=== PATIENT | female | born 1985 | race Asian ===

== ENCOUNTER 2017-07-03 08:18 | Day surgery (SDC) | payer OTHER ==
[2017-07-03] VITALS (14 sets, daily range): BP systolic 100–112; BP diastolic 50–66; PULSE 76–88; RESP 12–18; Ht 165.1 cm; Wt 54.0 kg
[~2017-07-03] VITALS: Ht 165.1 cm; Wt 54.0 kg
[~2017-07-03 08:18] MED LIST: CEFAZOLIN 1 GM INJ ONE
[2017-07-03] MEDS ORDERED: BUPIVACAINE 0.25% (MPF) 30 ML INJ ONE (09:16)
[2017-07-03] MEDS ORDERED: SOD CHLORIDE 0.9% 1,000 ML IV SCH (09:30)
[2017-07-03] MEDS ORDERED: CEFAZOLIN 1 GM/50 ML (PMX) 50 ML IVPB ONE (09:30)
[2017-07-03] MEDS ORDERED: PROPOFOL 20 ML ONE (10:04)
[2017-07-03] MEDS ORDERED: LIDOCAINE 2% (SDV) 5 ML INJ ONE (10:04)
[2017-07-03] MEDS ORDERED: SUCCINYLCHOLINE CHLORIDE 100 MG/5 ML SYG IV ONE (10:04)
[2017-07-03] MEDS ORDERED: MIDAZOLAM 1 MG/ML 2 ML INJ ONE (10:05)
[2017-07-03] MEDS ORDERED: FENTAnyl 50 MCG/ML VIAL ONE (10:05)
[2017-07-03] MEDS ORDERED: ONDANSETRON 4 MG INJ ONE (10:27)
[2017-07-03] MEDS ORDERED: METOCLOPRAMIDE 10 MG INJ ONE (10:27)
[2017-07-03] MEDS ORDERED: DEXAMETHASONE 4 MG/ML 1 ML INJ ONE (10:27)
[2017-07-03] MEDS ORDERED: EPHEDrine SULFATE 50 MG/5 ML SYG ONE (10:29)
[2017-07-03] MEDS ORDERED: HYDROmorphONE 2 MG/ML SYG ONE (10:40)
--- NOTE | 2017-07-03 11:40 | OPR ---
Date/Time of Note Date/Time of Note DATE: 07/03/17 TIME: 11:33 Operative Report Procedure Date: Jul 03, 2017 Preoperative Diagnosis internal and external hemorrhoids Postoperative Diagnosis internal and external hemorrhoids and posterior perianal mass Operation Performed 1. proctoplasty for prolapse of mucous membranes cpt code 36485 2. ligation of internal hemorrhoids multiple procedures cpt code 07230 3. rigid sigmoidoscopy 4. excision of perianal mass 2 cm 5. therapeutic injection of subcutaneous marcaine cpt code 11934 Surgeon: Erick THURSTON Anesthesia Type: general Estimated Blood Loss: 10 - 50 ml's Specimens posterior perianal mass Grafts/Implants: none Complications: no Indications 32-year-old female with internal/external hemorrhoids. Patient requires surgical repair. Risks alternatives benefits and percent were discussed the patient. Patient's best understanding consents to the operation. Operative\Procedure Findings Patient taken to the OR and prepped and draped in usual sterile fashion. Surgical timeout was performed. IV antibiotics given. Rigid sigmoid is performed. There is no evidence of any masses or lesions. Prep was fair. THC device was inserted for internal hemorrhoidal artery ligation in multiple regions in the circumflex ocular manner. This was performed by identifying under ultrasound guidance the internal hemorrhoidal artery ligation was performed with a [id number] 2-0 Vicryl suture using the device this was performed all throughout the internal hemorrhoidal artery complexes. After this was performed with 2-0 Vicryl was then sutured in a running fashion from proximal to distal down to the dentate line and tied performing the proctoplasty. These running sutures were also placed circumferentially all around the anal mucosa. There is good hemostasis. There is identification of a posterior perianal mass. This was excised using 15 blade and hand-held cautery. Hemostasis established. Therapeutic subcutaneous Marcaine was injected throughout the anal mucosa. Dry dressings were applied. Erick THURSTON Jul 03, 2017 11:40
[2017-07-03] MEDS ORDERED: HYDROmorphONE (0.2 MG/ML) 10ML SYG IV PRN (12:00)
[2017-07-03] MEDS ORDERED: FENTAnyl 50 MCG/ML VIAL IV PRN (12:00)
[2017-07-03] MEDS ORDERED: HYDROCODONE/APAP (5/325) TAB PO ONE (12:00)
[2017-07-03] MEDS ORDERED: KETOROLAC 30 MG INJ IV PRN (12:00)
[2017-07-03] MEDS ORDERED: DIPHENHYDRAMINE 50 MG INJ IV PRN (12:00)
[2017-07-03] MEDS ORDERED: MEPERIDINE 25 MG INJ IV PRN (12:00)
[2017-07-03] MEDS ORDERED: ONDANSETRON 4 MG INJ IV PRN (12:00)
== END 2017-07-03 14:35 | disposition home or self-care (01) ==
LOC: SDS 08:18
PROVIDERS: ATTEND Surgery
DX: K64.4 Residual hemorrhoidal skin tags (principal); K64.8 Other hemorrhoids
CPT/HCPCS: 46946; 84703; 88307; J0690; J1100; J1170; J1885; J2175; J2250; J2405; J2765; J3010; Z7512; Z7610; J7999